=== PATIENT | female | born 1965 | race Caucasian/White ===

== ENCOUNTER 2016-05-16 05:18 | Inpatient (IN) ==
[2016-05-14 11:24] LABS: MANUAL DIFF NEEDED? NO; URINE SOURCE VOIDED
[2016-05-14 12:23] LABS: CLARITY CLEAR (CLEAR); COLOR YELLOW; URINE EPITHELIAL CELLS <10 /HPF (<10); URINE WBC <10 /HPF (<10)
[2016-05-14 12:24] LABS: BILIRUBIN URINE NEGATIVE (NEGATIVE); GLUCOSE URINE NEGATIVE (NEGATIVE)
[2016-05-14 13:10] LABS: BLOOD URINE NEGATIVE (NEGATIVE); LEUKOCYTES URINE NEGATIVE (NEGATIVE); NITRITE URINE NEGATIVE (NEGATIVE); PROTEIN URINE NEGATIVE (NEGATIVE); UROBILINOGEN URINE NORMAL
[2016-05-14 15:48] LABS: BASO% 0.3 % (0.0-0.8); EOS# 0.07 X1000 (0.0-0.7); EOS% 1.1 % (0.0-10.0); HEMATOCRIT 44.5 % (37.0-47.0); HEMOGLOBIN 14.6 g/dL (12.0-16.0); IMM GRAN# 0.01 X1000 (0.0-0.04); IMM GRAN% 0.2 % (0.0-0.5); LYMPH# 2.27 X1000 (1.2-3.4); LYMPH% 36.1 % (20.5-51.1); MCH 29.7 PG (27-31); MCHC 32.8 g/dL (33-37); MCV 90.6 FL (81-99); MONO# 0.51 X1000 (0.11-0.59); MONO% 8.1 % (1.7-9.3); MPV 10.9 FL (7.4-10.4); NEUT% 54.2 % (42.2-75.2); PLT 263 X1000 (130-400); RBC 4.91 XMIL (4.2-5.4)
--- NOTE | 2016-05-15 14:23 | HISTORY AND PHYSICAL ---
HISTORY OF PRESENT ILLNESS: The patient is a 51-year-old female who is admitted at this time for a total abdominal hysterectomy and bilateral salpingo-oophorectomy. She comes in at this time with increasing problems with heavy irregular bleeding. This has been going on for quite some time with increasing lower pelvic pain. Ultrasound was done which showed a degenerating fibroid. She underwent a D C which continued to show normal tissue and blood clots but her pain and bleeding have persisted since that time. Therefore, she is admitted at this time for a VIOLET and BSO. She denies any bowel or bladder difficulties. PAST SURGICAL HISTORY: D C. MEDICATIONS: Otezla, Prilosec, and lisinopril. ALLERGIES: None. PHYSICAL EXAMINATION: GENERAL: Well developed female. HEENT: Benign. NECK: Supple. LUNGS: Clear. CARDIOVASCULAR: Regular rate and rhythm. ABDOMEN: Soft and nontender. EXTREMITIES: No clubbing, cyanosis, or edema. BIMANUAL: The uterus is enlarged with an anterior fibroid and tender. ASSESSMENT: A 51-year-old presenting with abnormal uterine bleeding, pelvic pain, and a degenerating fibroid. PLAN: She is admit at this time for a VIOLET and BSO. She understands the risks of the procedure. All questions were answered.
[2016-05-16] MEDS ORDERED: KEFZOL 1 GM/D5W 50 ML IV ONE (06:00)
[2016-05-16] MEDS ORDERED: LR 1,000 ML ONE ×3 (06:05→08:47)
[2016-05-16] MEDS ORDERED: FENTANYL ONE (06:21)
[2016-05-16] MEDS ORDERED: EPHEDRINE ONE (06:21)
[2016-05-16] MEDS ORDERED: VERSED ONE (06:21)
[2016-05-16] MEDS ORDERED: DIPRIVAN 1% ONE (06:21)
[2016-05-16] MEDS: LR 1,000 ML IV SCH ×4 (06:21→16:45)
[2016-05-16] MEDS ORDERED: LABETALOL ONE (06:22)
[2016-05-16] MEDS ORDERED: ZOFRAN IV PRN ×2 (06:37→09:37)
[2016-05-16] MEDS ORDERED: NORCO-5 PO PRN (06:37)
[2016-05-16] MEDS ORDERED: PHENERGAN IM PRN (06:37)
[2016-05-16] MEDS ORDERED: NORCO-10 PO PRN (06:37)
[2016-05-16] MEDS ORDERED: ZOFRAN ODT PO PRN (06:37)
[2016-05-16] MEDS ORDERED: DEMEROL IM PRN (06:37)
[2016-05-16] MEDS ORDERED: BICITRA ONE (06:39)
[2016-05-16] MEDS ORDERED: PEPCID ONE (06:40)
[2016-05-16] MEDS ORDERED: CLAVE SECONDARY SET 11953 ONE (06:43)
[2016-05-16] MEDS ORDERED: KEFZOL 1 GM/D5W 50 ML ONE (06:43)
[2016-05-16 07:31] LABS: URINE SOURCE CATH
[2016-05-16 08:01] LABS: BILIRUBIN URINE NEGATIVE (NEGATIVE); BLOOD URINE NEGATIVE (NEGATIVE); CLARITY SL. CLOUDY (CLEAR); COLOR YELLOW; GLUCOSE URINE NEGATIVE (NEGATIVE); LEUKOCYTES URINE NEGATIVE (NEGATIVE); NITRITE URINE NEGATIVE (NEGATIVE); PROTEIN URINE NEGATIVE (NEGATIVE); SP GRAVITY URINE 1.015; URINE MICROSCOPIC NEEDED? YES; UROBILINOGEN URINE NORMAL
[2016-05-16 08:02] LABS: URINE EPITHELIAL CELLS <10 /HPF (<10); URINE WBC <10 /HPF (<10)
[2016-05-16] MEDS: APRESOLINE ONE ×4 (08:16→09:01)
[2016-05-16] MEDS: MORPHINE ONE ×2 (08:30→08:41)
[2016-05-16] MEDS: PHENERGAN ONE ×2 (08:38→08:50)
[2016-05-16] MEDS ORDERED: MORPHINE PCA ONE (08:47)
[2016-05-16] MEDS ORDERED: BENADRYL IV PRN (09:37)
[2016-05-16] MEDS ORDERED: NARCAN IV PRN (09:37)
[2016-05-16] MEDS ORDERED: HYDROXYZINE PO PRN (09:37)
[2016-05-16] MEDS ORDERED: LR 1,000 ML IV SCH (09:37)
[2016-05-16] MEDS ORDERED: MORPHINE PCA IV PRN (09:37)
--- NOTE | 2016-05-16 10:08 | OPERATIVE NOTE ---
PROCEDURE DATE : 05/16/2016 SURGEON: Augusto Hinojosa MD [employer]ER: Urbano Richard MD. PREOPERATIVE DIAGNOSES: 1. Abnormal uterine bleeding. 2. Uterine fibroids. POSTOPERATIVE DIAGNOSES: 1. Abnormal uterine bleeding. 2. Uterine fibroids. PROCEDURE: 1. Total abdominal hysterectomy. 2. Bilateral salpingo-oophorectomy. ANESTHESIA: General endotracheal tube. FINDINGS: The patient was noted to have a markedly enlarged uterus with numerous fibroids. Ovaries were noted to be normal. DESCRIPTION OF OPERATION: The patient was taken to the operating room under general endotracheal tube anesthesia, given Ancef IV. She was prepped and draped in sterile fashion. Sol catheter was inserted into the bladder. Pump hose and stockings were placed, We made a Pfannenstiel skin incision, sharply dissected down to fascia. The fascia was dissected off the rectus muscle. Hemostasis was maintained by the Bovie. The peritoneum was entered into and dissected down with Metzenbaum scissors. O'Chad-O'Brunson retractor was placed. Bowel was packed away. The uterus was grasped with a Edy clamp. We used the LigaSure to clamp, cauterize, and cut the infundibulopelvic ligament, round ligament, and broad ligament and down to uterine vessels on each side. We then amputated the specimen because of the large size to get better visualization. The bladder then was taken down using Metzenbaum scissors, and we continued to use the LigaSure down to the uterosacral ligaments. At this time, the uterosacral ligaments were clamped with Kamran clamps and suture ligated with #1 Vicryl, and then we came across the cuff with curved [place] and achieved hemostasis with #1 Vicryl and then closed the cuff with [id number] #1 Vicryl suture. Good hemostasis was noted throughout. After irrigation was done, all pedicles were reinspected. At this time, with all packs removed along with retractor, the peritoneum was closed with 0 chromic suture, hemostasis maintained with the Bovie, fascia was closed with #1 Vicryl. Then 3-0 Vicryl was used subcuticularly, and then incision was closed with 4-0 Biosyn. Estimated blood loss 75 mL. Sponge and needle count correct.
[2016-05-16] MEDS: SODIUM CHLORIDE 0.9% INJ PRN ×2 (11:26→17:10)
[2016-05-16] MEDS: PHENERGAN IV PRN ×2 (11:26→17:10)
[2016-05-16] MEDS: TORADOL IV SCH ×2 (12:28→19:06)
[2016-05-16] MEDS ORDERED: LABETALOL (DOSE) ONE (16:48)
[2016-05-16] MEDS ORDERED: DECADRON ONE (16:48)
[2016-05-16] MEDS ORDERED: ZOFRAN ONE (16:48)
[2016-05-16] MEDS ORDERED: ROBINUL ONE (16:48)
[2016-05-16] MEDS ORDERED: NEOSTIGMINE ONE (16:48)
[2016-05-16] MEDS ORDERED: ZEMURON ONE (16:48)
[2016-05-16] MEDS ORDERED: QUELICIN (DOSE) ONE (16:48)
[2016-05-17] MEDS: TORADOL IV SCH ×2 (00:49→06:46)
[2016-05-17] MEDS: LR 1,000 ML IV SCH (01:07)
[2016-05-17 06:17] LABS: HEMATOCRIT 40.9 % (37.0-47.0); HEMOGLOBIN 13.3 g/dL (12.0-16.0)
[2016-05-17] MEDS ORDERED: HYDROXYZINE PO PRN (10:20)
[2016-05-17] MEDS: PERCOCET-10 PO PRN (18:53)
[2016-05-18] MEDS: PERCOCET-10 PO PRN (00:43)
--- NOTE | 2016-05-18 07:03 | DISCHARGE SUMMARY ---
ADMISSION DATE: 05/16/2016 DISCHARGE DATE: 05/18/2016 PRINCIPAL DIAGNOSES: 1. Abnormal uterine bleeding. 2. Uterine fibroids. POSTOPERATIVE DIAGNOSES: 1. Abnormal uterine bleeding. 2. Uterine fibroids. PROCEDURES: 1. Total abdominal hysterectomy. 2. Bilateral salpingo-oophorectomy. HOSPITAL COURSE: The patient was admitted and underwent VIOLET and BSO. Postoperatively she did well. She had good urinary output after the Sol was discontinued. Hematocrit was 40. At this time she is discharged home. DISCHARGE MEDICATIONS: Percocet for pain. FOLLOW UP: She will follow up in the office in 2 weeks. DISCHARGE INSTRUCTIONS: Discharge instructions were given.
[2016-05-18 07:19] VITALS: BP 172/95
== END 2016-05-18 09:10 | disposition home or self-care (01) | DRG 743 ==
LOC: P.WC 05:18
PROVIDERS: ADMIT Obstetrics & Gynecology; ATTEND Obstetrics & Gynecology
PROC: 0UT70ZZ Resection of Bilateral Fallopian Tubes, Open Approach (ICD-10-PCS; 2016-05-16)
PROC: 0UT20ZZ Resection of Bilateral Ovaries, Open Approach (ICD-10-PCS; 2016-05-16)
PROC: 0UT90ZZ Resection of Uterus, Open Approach (ICD-10-PCS; principal; 2016-05-16 06:45)
PROC: 0UTC0ZZ Resection of Cervix, Open Approach (ICD-10-PCS; 2016-05-16 06:45)
DX: D25.1 Intramural leiomyoma of uterus (principal); I10 Essential (primary) hypertension; N93.9 Abnormal uterine and vaginal bleeding, unspecified; E66.9 Obesity, unspecified; Z87.891 Personal history of nicotine dependence; Z68.32 Body mass index [BMI] 32.0-32.9, adult; K21.9 Gastro-esophageal reflux disease without esophagitis; D50.9 Iron deficiency anemia, unspecified; Z79.899 Other long term (current) drug therapy
CPT/HCPCS: 36415; 81001; 85014; 85018; 85025; 86850; 86900; 86901; 94799; J0330; J0360; J0690; J1100; J1885; J2250; J2270; J2405; J2550; J3010; J7120; J2710; S0028